=== PATIENT | male | born 1970 | race Caucasian/White ===

== ENCOUNTER → 2019-01-17 08:10 | Outpatient (CLI) | payer OTHER ==
--- NOTE | 2019-01-19 09:56 | EC ---
PATIENT:DANTE KAMARA DATE OF SERVICE: 01/17/19 SEX: M MEDICAL RECORD: [id number] DATE OF : [birth year] [facility] AGE [facility] PAT[facility]: 48 ADMISSION DATE: 01/17/19 REFERRING PHYSICIAN: INTERPRETING PHYSICIAN: KASSANDRA ARANDA MD ECHOCARDIOGRAM REPORT ECHO CHARGES 4 ECHO COMPLETE Date: 01/17/19 CLINICAL DIAGNOSIS: HTN ECHOCARDIOGRAPHIC MEASUREMENTS (adult normal given) AC root (d.<3.7cm) 3.7 cm LV Septum d (<1.2 cm> 1.3 cm Valve Excursion 2.3 cm LV Septum (systole) 1.9 cm Left Atria (s.<4.0cm> 4.3 cm LVPW d(<1.2cm) 1.2 cm RV (d.<2.3cm) 3.1 cm LVPW (sytole) 1.5 cm LV diastole(<5.6CM) 5.4 cm MV E-F(>70mm/sec) cm LV systole 3.7 cm LVOT Diameter 2.3 cm MV exc.(>10mm) cm Est.ejection fraction (50-75%) % DOPPLER: LVIT cm/sec A 50.0 cm/sec E 67.0 cm/sec LA cm/sec RVSP 27.1 mmHg LVOT 125 cm/sec AOP1/2T m/s Asc. 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 Zhang TAPE# PACS Pericardial Effusion N DATE OF SERVICE: 01/17/2019 Adequate 2D, color flow imaging, spectral Doppler, and M-Mode Borderline LVH. LV internal dimension is normal. Wall motion is normal. EF is greater than or equal to 55%. Aortic valve is tricuspid. No evidence of stenosis by Doppler interrogation. Left atrium is mildly dilated at 4.3 cm. Mitral valve shows no prolapse. Trace MR. Right-sided chambers are grossly normal. Trace TR. 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
== END | disposition home or self-care (01) ==
LOC: D.HCCECHO 08:10
PROVIDERS: ATTEND Internal Medicine Interventional Cardiology
DX: I10 Essential (primary) hypertension (principal)